=== PATIENT | female | born 1990 | race Caucasian/White ===

== ENCOUNTER 2016-09-23 16:40 | Emergency (ER) | payer BC, SELFPAY ==
--- NOTE | 2016-10-05 14:39 | ER ---
ADMIT: 09/23/2016 RM/LOC: ER [facility] MR#: [id number] [address] [id number] CODEY HAWTHORNE I [address] [place] [id number] Emergency Room Report SEX: F AGE: 25 : 1990 DATE: 09/23/2016 ADDENDUM: CHIEF COMPLAINT: Head contusion. HISTORY OF PRESENT ILLNESS: This is a 25-year-old female whom she said she opened up her closet door and the iron fell out onto her head. She has vomited twice prior to arrival. She has pretty significant headache that she rates at a 6/10. EMERGENCY ROOM COURSE: A CT head was done. She was given Zofran and Toradol. CT of the head is negative for any acute findings. CLINICAL IMPRESSION: Concussion. DISPOSITION: Stable at discharge. PLAN: I am prescribing Zofran for nausea at home, having her push fluids, light diet tonight, and follow up with the primary care physician if worsen. CHRISSIE Robles / Ramiro Ramirez MD / katiel JOB #: [id number] CC: Ramiro Ramirez MD, Attending Physician UNKNOWN, Family Physician
== END 2016-09-23 17:50 | disposition home or self-care (01) ==
LOC: ER 16:40
DX: S06.0X0A Concussion without loss of consciousness, initial encounter (principal); W22.8XXA Striking against or struck by other objects, initial encounter; Y92.009 Unspecified place in unspecified non-institutional (private) residence as the place of occurrence of the external cause